=== PATIENT | female | born 1990 | race American Indian/Alaskan Native ===

== ENCOUNTER 2021-06-26 11:39 | Observation (INO) | payer SELFPAY ==
[2021-06-26] MEDS ORDERED: ACETAMINOPHEN 500 MG TAB PO ONE (12:16)
--- NOTE | 2021-06-26 12:21 | Emergency Department Report ---
ED Shortness of Breath HPI - General Chief Complaint: Dyspnea/Respdistress Stated Complaint: BP/HEADACHE/WEAK Time Seen by Provider: 06/26/21 12:01 Source: patient Mode of arrival: Ambulatory Limitations: No Limitations - History of Present Illness Initial Comments: Patient is a 31-year-old female presenting to the emergency department with multiple complaints. Patient states for the past 4 to 5 days she has had heavy cycles. She is noted that previously her cycles are not heavy. She is also had some shortness of breath headache and back pain. This is been present for the same time as her heavy cycles, for the past 4 days. She denies history of anemia and she denies any chest pain currently. She denies any history of blood clots in legs or lungs. She also notes she has a stye on her eye. She denies any fevers chills. She notes she is unvaccinated COVID-19 and has not had any sick contacts. - Related Data Previous Rx's Medication Instructions Recorded Last Taken Type Norgestimate-Ethinyl Estradiol 1 each PO QDAY #30 tablet 06/27/21 Unknown Rx [Ortho-Cyclen] Allergies Allergy/AdvReac Type Severity Reaction Status Date / Time No Known Allergies Allergy Unverified 06/26/21 11:43 ED Review of Systems ROS: Stated complaint: BP/HEADACHE/WEAK Other details as noted in HPI Constitutional: denies: chills, fever Eyes: denies: eye pain ENT: denies: throat pain Respiratory: shortness of breath. denies: cough Cardiovascular: denies: chest pain, syncope Endocrine: no symptoms reported Gastrointestinal: abdominal pain Genitourinary: denies: urgency, dysuria Musculoskeletal: denies: back pain Skin: denies: rash Neurological: denies: headache, weakness Psychiatric: denies: anxiety, depression Hematological/Lymphatic: denies: easy bleeding ED Past Medical Hx - Medications Home Medications: Home Medications Medication Instructions Recorded Confirmed Last Taken Type Norgestimate-Ethinyl Estradiol 1 each PO QDAY #30 tablet 06/27/21 Unknown Rx [Ortho-Cyclen] ED Physical Exam - General Limitations: No Limitations General appearance: alert, in no apparent distress - Head Head exam: Present: atraumatic, normocephalic - Eye Eye exam: Present: normal appearance - ENT ENT exam: Present: mucous membranes moist - Neck Neck exam: Present: normal inspection - Respiratory Respiratory exam: Present: normal lung sounds bilaterally. Absent: respiratory distress - Cardiovascular Cardiovascular Exam: Present: regular rate, normal rhythm. Absent: systolic murmur, diastolic murmur, rubs, gallop - GI/Abdominal GI/Abdominal exam: Present: soft, normal bowel sounds - Rectal Rectal exam: Present: deferred - External exam: Present: normal external exam Speculum exam: Present: vaginal bleeding. Absent: erythema, vaginal discharge, foreign body, laceration - Extremities Exam Extremities exam: Present: normal inspection - Back Exam Back exam: Present: normal inspection - Neurological Exam Neurological exam: Present: alert, oriented X3 - Psychiatric Psychiatric exam: Present: normal affect, normal mood - Skin Skin exam: Present: warm, dry, intact, normal color. Absent: rash ED Course Vital Signs 06/26/21 06/26/21 06/26/21 11:43 11:46 17:07 Temperature 98.9 F 98.0 F Pulse Rate 110 H 88 Respiratory 18 18 Rate Blood Pressure 101/52 96/39 Blood Pressure [Left] O2 Sat by Pulse 100 100 100 Oximetry 06/26/21 06/26/21 06/26/21 17:22 17:38 17:46 Temperature 98.0 F Pulse Rate 88 84 87 Respiratory 16 14 14 Rate Blood Pressure 101/53 96/55 89/52 Blood Pressure [Left] O2 Sat by Pulse 100 100 100 Oximetry 06/26/21 06/26/21 06/26/21 18:00 18:16 18:30 Temperature Pulse Rate 93 H 84 104 H Respiratory 14 13 16 Rate Blood Pressure 94/54 96/50 92/54 Blood Pressure [Left] O2 Sat by Pulse 100 98 99 Oximetry 06/26/21 06/26/21 06/26/21 18:32 18:46 19:00 Temperature 98.9 F Pulse Rate 91 H 84 88 Respiratory 15 11 L 15 Rate Blood Pressure 106/64 101/58 95/50 Blood Pressure [Left] O2 Sat by Pulse 100 99 98 Oximetry 06/26/21 06/26/21 06/26/21 19:09 19:30 19:43 Temperature 99.1 F 98.9 F Pulse Rate 85 84 91 H Respiratory 12 12 15 Rate Blood Pressure 97/55 106/64 Blood Pressure 93/49 [Left] O2 Sat by Pulse 100 98 100 Oximetry 06/26/21 06/26/21 06/26/21 19:46 20:00 20:30 Temperature Pulse Rate 77 87 85 Respiratory 13 13 10 L Rate Blood Pressure 99/61 95/54 103/48 Blood Pressure [Left] O2 Sat by Pulse 100 100 97 Oximetry 06/26/21 06/26/21 06/26/21 20:46 21:00 21:16 Temperature Pulse Rate 95 H 89 87 Respiratory 14 15 14 Rate Blood Pressure 108/44 104/65 97/62 Blood Pressure [Left] O2 Sat by Pulse 99 99 100 Oximetry 06/26/21 06/26/21 06/26/21 22:00 22:18 22:30 Temperature 98.7 F 98.1 F Pulse Rate 88 88 85 Respiratory 17 13 15 Rate Blood Pressure 96/63 104/50 93/58 Blood Pressure [Left] O2 Sat by Pulse 100 100 100 Oximetry 06/26/21 06/26/21 06/26/21 22:46 23:00 23:16 Temperature Pulse Rate 94 H 90 98 H Respiratory 12 12 14 Rate Blood Pressure 97/57 96/51 108/65 Blood Pressure [Left] O2 Sat by Pulse 99 99 100 Oximetry 06/26/21 06/26/21 06/27/21 23:30 23:46 00:00 Temperature Pulse Rate 77 80 98 H Respiratory 10 L 10 L Rate Blood Pressure 101/63 103/62 110/65 Blood Pressure [Left] O2 Sat by Pulse 98 97 99 Oximetry 06/27/21 06/27/21 06/27/21 00:16 00:30 00:40 Temperature 98 F Pulse Rate 75 77 77 Respiratory 11 L 9 L 12 Rate Blood Pressure 119/61 109/61 106/76 Blood Pressure [Left] O2 Sat by Pulse 100 98 100 Oximetry 06/27/21 06/27/21 06/27/21 01:00 01:30 01:33 Temperature 98.6 F 99.1 F Pulse Rate 92 H 84 81 Respiratory 11 L 15 19 Rate Blood Pressure 113/80 107/68 Blood Pressure [Left] O2 Sat by Pulse 97 97 100 Oximetry 06/27/21 06/27/21 06/27/21 01:46 01:48 02:00 Temperature 98.9 F Pulse Rate 80 80 85 Respiratory 10 L 11 L 18 Rate Blood Pressure 107/68 113/78 116/69 Blood Pressure [Left] O2 Sat by Pulse 99 97 97 Oximetry 06/27/21 06/27/21 06/27/21 02:16 02:30 02:46 Temperature Pulse Rate 89 82 81 Respiratory 18 12 12 Rate Blood Pressure 106/63 111/74 109/64 Blood Pressure [Left] O2 Sat by Pulse 97 97 99 Oximetry 06/27/21 06/27/21 06/27/21 03:00 03:30 03:46 Temperature Pulse Rate 92 H 84 78 Respiratory 14 11 L Rate Blood Pressure 109/80 111/67 100/61 Blood Pressure [Left] O2 Sat by Pulse 98 100 99 Oximetry 06/27/21 06/27/21 06/27/21 04:00 04:16 04:30 Temperature Pulse Rate 86 69 76 Respiratory 13 11 L 11 L Rate Blood Pressure 105/66 107/64 113/67 Blood Pressure [Left] O2 Sat by Pulse 99 97 98 Oximetry 06/27/21 06/27/21 06/27/21 04:46 05:04 05:16 Temperature 98.1 F Pulse Rate 72 82 65 Respiratory 10 L 15 14 Rate Blood Pressure 97/61 110/53 111/63 Blood Pressure [Left] O2 Sat by Pulse 99 97 99 Oximetry 06/27/21 06/27/21 06/27/21 05:30 05:43 05:50 Temperature 98.5 F 98.8 F Pulse Rate 70 84 93 H Respiratory 23 12 14 Rate Blood Pressure 111/63 108/60 98/59 Blood Pressure [Left] O2 Sat by Pulse 98 99 100 Oximetry 06/27/21 06/27/21 06/27/21 06:16 06:30 06:40 Temperature Pulse Rate 87 81 93 H Respiratory 13 13 14 Rate Blood Pressure 112/68 105/58 105/58 Blood Pressure [Left] O2 Sat by Pulse 100 99 97 Oximetry 06/27/21 06/27/21 06/27/21 06:50 07:00 07:10 Temperature Pulse Rate 78 86 83 Respiratory 13 10 L 12 Rate Blood Pressure 112/66 93/57 93/57 Blood Pressure [Left] O2 Sat by Pulse 100 100 100 Oximetry 06/27/21 06/27/21 06/27/21 07:20 07:30 07:40 Temperature Pulse Rate 80 82 75 Respiratory 12 12 12 Rate Blood Pressure 94/46 113/71 113/71 Blood Pressure [Left] O2 Sat by Pulse 99 95 99 Oximetry 06/27/21 06/27/21 06/27/21 07:50 08:00 08:20 Temperature Pulse Rate 80 83 Respiratory 19 16 Rate Blood Pressure 100/67 103/57 103/57 Blood Pressure [Left] O2 Sat by Pulse 99 100 84 Oximetry - Reevaluation(s) Reevaluation #1: Patient with anemia; hgb 3.2. Patient HDS, 4 units PRBC ordered patient to be admitted. IV premarin ordered due to active bleeding. ED Medical Decision Making - Lab Data Result diagrams: 06/27/21 20:25 06/26/21 13:22 - Medical Decision Making This is a 31-year-old female here with complaint of shortness of breath headache back pain increased bleeding with menstruation. Differential includes anemia, viral illness. Considered but less likely would be pulmonary embolism however patient does not have risk factors but she has slight tachycardia. Her oxygen levels are 100%. Plan for evaluation with basic labs chest x-ray will give IV fluids and pain control. Will reassess after. Critical care attestation.: If time is entered above; I have spent that time in minutes in the direct care of this critically ill patient, excluding procedure time. ED Disposition Clinical Impression: Anemia, Symptomatic anemia Menorrhagia Qualifiers: Menorrhagia type: with regular cycle Qualified Code(s): N92.0 - Excessive and frequent menstruation with regular cycle Disposition: ADMITTED INPATIENT Is pt being admited?: Yes Does the pt Need Aspirin: No Condition: Stable
[2021-06-26] MEDS: SODIUM CHLORIDE 0.9% 1000 ML 1,000 ML IV ONE ×2 (12:46→14:56)
[2021-06-26 14:13] LABS: Mean Corpuscular HGB Conc 26 % (30-34); Red Blood Count 2.34 M/mm3 (3.65-5.03)
[2021-06-26 14:15] LABS: Hematocrit 12.3 % (30.3-42.9); Hemoglobin 3.2 gm/dl (10.1-14.3); Mean Corpuscular Volume 53 fl (79-97); Platelet Count 38 K/mm3 (140-440); Red Cell Distribution Width 30.9 % (13.2-15.2)
[2021-06-26] MEDS ORDERED: SODIUM CHLORIDE 0.9% 500 ML 500 ML IV ONE (14:18)
[2021-06-26 14:30] LABS: Alanine Aminotransferase 7 units/L (7-56); Albumin 3.4 g/dL (3.9-5); Blood Urea Nitrogen 9 mg/dL (7-17); Calcium 7.8 mg/dL (8.4-10.2); Hemolysis Index 3
[2021-06-26 14:32] LABS: BUN/Creatinine Ratio 23
[2021-06-26 14:53] LABS: Total Cells Counted 100
[2021-06-26 14:54] LABS: Anisocytosis 3+; Hypochromasia 3+; Platelet Estimate Consistent w Auto; Poikilocytosis 1+
[2021-06-26 14:55] LABS: Helmet Cells Rare; Ovalocytes Few; Tear Drop Cells Few
[2021-06-26] MEDS ORDERED: SODIUM CHLORIDE 0.9% 1000 ML 1,000 ML ONE (16:57)
--- NOTE | 2021-06-26 19:09 | XRay Report ---
CHEST 1 VIEW INDICATION: dyspnea. COMPARISON: None. FINDINGS: Support devices: None. Heart: Normal. Lungs/Pleura: No acute findings. IMPRESSION: 1. No significant abnormality. Signer Name: Fritz Dillon MD Signed: 06/26/2021 7:04 PM Workstation Name: [id number]
[2021-06-26] MEDS ORDERED: ACETAMINOPHEN 325 MG TAB PO PRN (19:19)
[2021-06-26] MEDS ORDERED: ALBUTEROL 2.5 MG/3 ML NEBU IH PRN (19:19)
[2021-06-26] MEDS ORDERED: SENNOSIDES/DOCUSATE SODIUM 8.6/50 MG TAB PO PRN (19:21)
--- NOTE | 2021-06-26 19:21 | History and Physical Report ---
History of Present Illness Chief complaint: I am so weak History of present illness: 31 YO Female with Menorrhagia, medication noncompliance, lost outpatient follow- up presents ED for evaluation. Patient states that she has experienced generalized weakness over the past 1 month with worsening symptoms over the same timeframe. Patient transported to [facility] via private vehicle for further care and evaluation of the aforementioned symptoms. The patient was seen and evaluated in the emergency department. All laboratory studies reviewed. Patient found to have menorrhagia complicated by blood loss anemia, as well as iron deficiency anemia. Patient placed in observation status and admitted to medical floor. Packed red blood cell transfusion initiated in the emergency department. Patient denies fever, chills, chest pain, palpitation, productive cough, skin rash, recent contact, known exposure to COVID-19. No prior admission for review. No medication listed at time of admission reconciliation. Advanced ca re planning conducted in ED. Patient is not vaccinated against COVID-19. Past History Past Medical History: other (See HPI) Past Surgical History: No surgical history Social history: single Family history: hypertension Medications and Allergies Allergies Allergy/AdvReac Type Severity Reaction Status Date / Time No Known Allergies Allergy Unverified 06/26/21 11:43 Active Meds: Active Medications Estrogens Conjugated (Estrogens, Conjugated 25 Mg Inj) 25 mg IV ONCE ONE Stop: 06/26/21 19:44 Review of Systems Constitutional: weakness, no weight loss, no fever, no chills, no sweats Ears, nose, mouth and throat: no ear pain, no decreased hearing, no nasal congestion Breasts: no change in shape, no swelling, no mass Cardiovascular: no chest pain, no orthopnea, no palpitations, no edema Respiratory: no cough, no cough with sputum, no hemoptysis, no shortness of breath Gastrointestinal: no abdominal pain, no nausea, no vomiting, no constipation Genitourinary Female: menorrhagia, no pelvic pain, no flank pain, no dysuria Rectal: no pain, no incontinence, no bleeding Musculoskeletal: no neck stiffness, no shooting arm pain Integumentary: no rash, no pruritis, no sores, no jaundice Neurological: no head injury, no transient paralysis, no weakness, no parathesias, no tingling Psychiatric: no anxiety, no sleep disturbances, no hypersomnia, no change in libido, no suicidal ideation Endocrine: no cold intolerance, no polyphagia, no excessive thirst, no polyuria, no nocturia, no flushing Hematologic/Lymphatic: no easy bruising, no easy bleeding Allergic/Immunologic: no urticaria, no allergic rhinitis Exam - Constitutional Vitals: Temp Pulse Resp BP Pulse Ox 98.0 F 84 11 L 101/58 99 06/26/21 17:22 06/26/21 18:46 06/26/21 18:46 06/26/21 18:46 06/26/21 18:46 General appearance: Present: no acute distress - EENT Eyes: Present: PERRL (Conjunctival pallor) ENT: hearing intact, clear oral mucosa - Neck Neck: Present: supple, normal ROM - Respiratory Respiratory effort: normal Respiratory: bilateral: CTA - Cardiovascular Heart Sounds: Present: S1 & S2. Absent: rub, click - Extremities Extremities: pulses symmetrical, No edema Peripheral Pulses: within normal limits - Abdominal General gastrointestinal: Present: soft, non-tender, non-distended, normal bowel sounds Female genitourinary: Present: normal - Integumentary Integumentary: Present: clear, warm, dry - Musculoskeletal Musculoskeletal: generalized weakness - Psychiatric Psychiatric: appropriate mood/affect, intact judgment & insight - Neurologic Neurologic: CNII-XII intact, moves all extremities Results - Labs CBC & Chem 7: 06/26/21 13:22 06/26/21 13:22 Labs: Abnormal lab results 06/26/21 06/26/21 06/26/21 Range/Units 13:22 13:22 15:21 WBC 3.4 L (4.5-11.0) K/mm3 RBC 2.34 L (3.65-5.03) M/mm3 Hgb 3.2 L* (10.1-14.3) gm/dl Hct 12.3 L* (30.3-42.9) % MCV 53 L (79-97) fl MCH 14 L (28-32) pg MCHC 26 L (30-34) % RDW 30.9 H (13.2-15.2) % Plt Count 38 L (140-440) K/mm3 Lymphocytes % (Manual) 45.0 H (13.4-35.0) % Seg Neutrophils # Man 1.6 L (1.8-7.7) K/mm3 Chloride 107.7 H (98-107) mmol/L Carbon Dioxide 19 L (22-30) mmol/L Creatinine 0.4 L (0.6-1.2) mg/dL Calcium 7.8 L (8.4-10.2) mg/dL Total Protein 5.5 L (6.3-8.2) g/dL Albumin 3.4 L (3.9-5) g/dL Crossmatch See Detail Assessment and Plan - Patient Problems (1) Symptomatic anemia Current Visit: Yes Status: Acute Plan to address problem: Blood cell transfusion, CBC, repeat CBC in a.m. iron replacement therapy (2) Menorrhagia Current Visit: Yes Status: Acute Qualifiers: Menorrhagia type: with regular cycle Qualified Code(s): N92.0 - Excessive and frequent menstruation with regular cycle Plan to address problem: Outpatient [employer] follow-up. (3) Iron deficiency anemia Current Visit: Yes Status: Acute Plan to address problem: Iron placement therapy, bowel regimen. (4) Noncompliance with medication regimen Current Visit: Yes Status: Acute Plan to address problem: Patient counseled. (5) DVT prophylaxis Current Visit: Yes Status: Acute Plan to address problem: SCD to bilateral lower extremities while in bed, patient is ambulatory (6) Advance care planning Current Visit: Yes Status: Acute Plan to address problem: Disease education conducted, care plan discussed, diagnoses discussed, prognosis discussed, patient is full code. Patient informed of outpatient medical follow- up that should occur upon discharge. Patient acknowledges understanding and agreement with care plan, +30 minutes.
[2021-06-26] MEDS ORDERED: ESTROGENS, CONJUGATED 25 MG INJ IV ONE (19:43)
[2021-06-26] MEDS: FERROUS SULFATE 325 MG TAB PO SCH (20:02)
[2021-06-26] MEDS: oxyCODONE /ACETAMINOPHEN 5-325MG TAB PO PRN (22:06)
[2021-06-26 22:33] LABS: HCG Qualitative,Urine Negative (Negative)
[2021-06-26] MEDS: HYDROmorphone 1 MG/1 ML INJ IV PRN (23:05)
[2021-06-27] MEDS ORDERED: HYDROmorphone 1 MG/1 ML INJ IV STA (02:07)
[2021-06-27] MEDS: KETOROLAC 30 MG/1 ML INJ IV PRN ×3 (02:49→12:51)
[2021-06-27] MEDS: ONDANSETRON 4 MG/2 ML INJ IV PRN ×3 (02:49→18:35)
--- NOTE | 2021-06-27 07:23 | Progress Note ---
Assessment and Plan Assessment and plan: #Symptomatic acute blood loss anemia #Microcytic anemia -likely 2/2 to menorrhagia -given thrombocytopenia, MAHA vs TTP is a consideration -LDH, INR, Haptoglobin, fibrinogen and d-dimer ordered -repeat Hgb 9.6 after 4 units of pRBC -q8h H&H -will transfuse for Hgb <8 #Menorrhagia -heavy period x5 days -s/p premarin x1; will continue q6hr x 1 day -Vaginal ultrasound ordered -Gynecology consulted, assistance appreciated -UPT negative #Thrombocytopenia -Platelet count 38 on admission, 29 today -will hold chemical DVT prophylaxis at this time -PLASMIC score for TTP: 2 (plt count less than 30, MCV <90); low probability of TTP -will continue to monitor #Leukopenia -Resolved Disposition Plan: continue medical management History Interval history: No acute events overnight. Patient received all 4 units of blood. Reports feeling better. Still having her menstrual cycle. No other complaints at this time. Hospitalist Physical - Physical exam Narrative exam: GENERAL: Well-developed well-nourished. Lying in bed, in no acute distress. HEENT: Stye right eye CHEST/LUNGS: CTAB on room air HEART/CARDIOVASCULAR: RRR. No murmur, rubs or gallops appreciated. ABDOMEN: +BS. NT/ND. SKIN: No rashes or ecchymosis noted. NEURO: No focal motor deficit. Follows all commands. MUSCULOSKELETAL: No joint effusion EXTREMITIES: No cyanosis, clubbing or edema. PSYCH: Cooperative. - Constitutional Vitals: Temp Pulse Resp BP Pulse Ox 98.8 F 87 13 112/68 100 06/27/21 05:50 06/27/21 06:16 06/27/21 06:16 06/27/21 06:16 06/27/21 06:16 General appearance: Present: no acute distress Results - Labs CBC & Chem 7: 06/27/21 10:32 06/26/21 13:22 Labs: Laboratory Last Values WBC 3.4 K/mm3 (4.5-11.0) L 06/26/21 13:22 RBC 2.34 M/mm3 (3.65-5.03) L 06/26/21 13:22 Hgb 3.2 gm/dl (10.1-14.3) L* 06/26/21 13:22 Hct 12.3 % (30.3-42.9) L* 06/26/21 13:22 MCV 53 fl (79-97) L 06/26/21 13:22 MCH 14 pg (28-32) L 06/26/21 13:22 MCHC 26 % (30-34) L 06/26/21 13:22 RDW 30.9 % (13.2-15.2) H 06/26/21 13:22 Plt Count 38 K/mm3 (140-440) L 06/26/21 13:22 Add Manual Diff Complete 06/26/21 13:22 Total Counted 100 06/26/21 13:22 Seg Neuts % (Manual) 48.0 % (40.0-70.0) 06/26/21 13:22 Band Neutrophils % 1.0 % 06/26/21 13:22 Lymphocytes % (Manual) 45.0 % (13.4-35.0) H 06/26/21 13:22 Monocytes % (Manual) 4.0 % (0.0-7.3) 06/26/21 13:22 Eosinophils % (Manual) 2.0 % (0.0-4.3) 06/26/21 13:22 Nucleated RBC % Not Reportable 06/26/21 13:22 Seg Neutrophils # Man 1.6 K/mm3 (1.8-7.7) L 06/26/21 13:22 Band Neutrophils # 0.0 K/mm3 06/26/21 13:22 Lymphocytes # (Manual) 1.5 K/mm3 (1.2-5.4) 06/26/21 13:22 Abs React Lymphs (Man) 0.0 K/mm3 06/26/21 13:22 Monocytes # (Manual) 0.1 K/mm3 (0.0-0.8) 06/26/21 13:22 Eosinophils # (Manual) 0.1 K/mm3 (0.0-0.4) 06/26/21 13:22 Basophils # (Manual) 0.0 K/mm3 (0.0-0.1) 06/26/21 13:22 Metamyelocytes # 0.0 K/mm3 06/26/21 13:22 Myelocytes # 0.0 K/mm3 06/26/21 13:22 Promyelocytes # 0.0 K/mm3 06/26/21 13:22 Blast Cells # 0.0 K/mm3 06/26/21 13:22 WBC Morphology Not Reportable 06/26/21 13:22 Hypersegmented Neuts Not Reportable 06/26/21 13:22 Hyposegmented Neuts Not Reportable 06/26/21 13:22 Hypogranular Neuts Not Reportable 06/26/21 13:22 Smudge Cells Not Reportable 06/26/21 13:22 Toxic Granulation Not Reportable 06/26/21 13:22 Toxic Vacuolation Not Reportable 06/26/21 13:22 Dohle Bodies Not Reportable 06/26/21 13:22 Pelger-Huet Anomaly Not Reportable 06/26/21 13:22 Jurgen Rods Not Reportable 06/26/21 13:22 Platelet Estimate Consistent w auto 06/26/21 13:22 Clumped Platelets Not Reportable 06/26/21 13:22 Plt Clumps, EDTA Not Reportable 06/26/21 13:22 Large Platelets Not Reportable 06/26/21 13:22 Giant Platelets Not Reportable 06/26/21 13:22 Platelet Satelliting Not Reportable 06/26/21 13:22 Plt Morphology Comment Not Reportable 06/26/21 13:22 RBC Morphology Not Reportable 06/26/21 13:22 Dimorphic RBCs Not Reportable 06/26/21 13:22 Polychromasia Not Reportable 06/26/21 13:22 Hypochromasia 3+ 06/26/21 13:22 Poikilocytosis 1+ 06/26/21 13:22 Anisocytosis 3+ 06/26/21 13:22 Microcytosis 3+ 06/26/21 13:22 Macrocytosis Not Reportable 06/26/21 13:22 Spherocytes Not Reportable 06/26/21 13:22 Pappenheimer Bodies Not Reportable 06/26/21 13:22 Sickle Cells Not Reportable 06/26/21 13:22 Target Cells Not Reportable 06/26/21 13:22 Tear Drop Cells Few 06/26/21 13:22 Ovalocytes Few 06/26/21 13:22 Helmet Cells Rare 06/26/21 13:22 Hines-Brenda Bodies Not Reportable 06/26/21 13:22 [place] Rings Not Reportable 06/26/21 13:22 Juan Cells Not Reportable 06/26/21 13:22 Bite Cells Not Reportable 06/26/21 13:22 Crenated Cell Not Reportable 06/26/21 13:22 Elliptocytes Few 06/26/21 13:22 Acanthocytes (Spur) Not Reportable 06/26/21 13:22 Rouleaux Not Reportable 06/26/21 13:22 Hemoglobin C Crystals Not Reportable 06/26/21 13:22 Schistocytes Not Reportable 06/26/21 13:22 Malaria parasites Not Reportable 06/26/21 13:22 John Bodies Not Reportable 06/26/21 13:22 Hem Pathologist Commnt No 06/26/21 13:22 Sodium 139 mmol/L (137-145) 06/26/21 13:22 Potassium 3.6 mmol/L (3.6-5.0) 06/26/21 13:22 Chloride 107.7 mmol/L (98-107) H 06/26/21 13:22 Carbon Dioxide 19 mmol/L (22-30) L 06/26/21 13:22 Anion Gap 16 mmol/L 06/26/21 13:22 BUN 9 mg/dL (7-17) 06/26/21 13:22 Creatinine 0.4 mg/dL (0.6-1.2) L 06/26/21 13:22 Estimated GFR > 60 ml/min 06/26/21 13:22 BUN/Creatinine Ratio 23 % 06/26/21 13:22 Glucose 94 mg/dL (65-100) 06/26/21 13:22 Calcium 7.8 mg/dL (8.4-10.2) L 06/26/21 13:22 Total Bilirubin < 0.20 mg/dL (0.1-1.2) 06/26/21 13:22 AST 10 units/L (5-40) 06/26/21 13:22 ALT 7 units/L (7-56) 06/26/21 13:22 Alkaline Phosphatase 45 units/L (35-129) 06/26/21 13:22 Total Protein 5.5 g/dL (6.3-8.2) L 06/26/21 13:22 Albumin 3.4 g/dL (3.9-5) L 06/26/21 13:22 Albumin/Globulin Ratio 1.6 % 06/26/21 13:22 HCG, Qual Negative (Negative) 06/26/21 13:22 Urine HCG, Qual Negative (Negative) 06/26/21 21:31 Blood Type B POSITIVE 06/26/21 15:21 Antibody Screen Negative 06/26/21 15:21 Crossmatch See Detail 06/26/21 15:21 Active Medications - Current Medications Current Medications: Generic Name Dose Route Start Last Admin Trade Name Freq PRN Reason Stop Dose Admin Acetaminophen 650 mg 06/26/21 19:19 Acetaminophen 325 Mg Tab PO Q4H PRN Pain MILD(1-3)/Fever >100.5/ZAFAR Albuterol 2.5 mg 06/26/21 19:19 Albuterol 2.5 Mg/3 Ml Nebu IH Q4HRT PRN Shortness Of Breath Ferrous Sulfate 325 mg 06/26/21 20:00 06/26/21 20:02 Ferrous Sulfate 325 Mg Tab PO 325 mg TID BLAKE Administration Hydromorphone HCl 0.5 mg 06/26/21 19:19 06/26/21 23:05 Hydromorphone 1 Mg/1 Ml Inj IV 0.5 mg Q23H PRN Administration Pain , Severe (7-10) Ketorolac Tromethamine 15 mg 06/27/21 02:18 06/27/21 02:49 Ketorolac 30 Mg/1 Ml Inj IV 07/02/21 02:17 15 mg Q6H PRN Administration Pain, Mild (1-3) Ondansetron HCl 4 mg 06/26/21 19:19 06/27/21 02:49 Ondansetron 4 Mg/2 Ml Inj IV 4 mg Q8H PRN Administration Nausea And Vomiting Oxycodone/Acetaminophen 1 tab 06/26/21 19:19 06/26/21 22:06 Oxycodone /Acetaminophen 5-325mg Tab PO 1 tab Q16H PRN Administration Pain, Moderate (4-6) Senna/Docusate Sodium 2 tab 06/26/21 19:21 Sennosides/Docusate Sodium 8.6/50 Mg Tab PO Q12H PRN Laxative Effect Sodium Chloride 10 ml 06/26/21 22:00 06/26/21 22:12 Sodium Chloride 0.9% 10 Ml Flush Syringe IV 10 ml BID BLAKE Administration Sodium Chloride 10 ml 06/26/21 19:19 Sodium Chloride 0.9% 10 Ml Flush Syringe IV PRN PRN LINE FLUSH
[2021-06-27 10:45] LABS: Hematocrit 31.3 % (30.3-42.9); Hemoglobin 9.6 gm/dl (10.1-14.3); Mean Corpuscular HGB Conc 31 % (30-34); Mean Corpuscular Volume 76 fl (79-97); Red Blood Count 4.11 M/mm3 (3.65-5.03)
[2021-06-27 10:46] LABS: Platelet Count 29 K/mm3 (140-440); Red Cell Distribution Width 37.8 % (13.2-15.2)
[2021-06-27 11:28] LABS: Total Cells Counted 100
[2021-06-27 11:29] LABS: Hypochromasia 1+; Macrocytosis 1+
[2021-06-27 11:30] LABS: Anisocytosis 2+; Platelet Estimate Consistent w Auto
--- NOTE | 2021-06-27 12:12 | Consultation ---
History of Present Illness Consult date: 06/27/21 Requesting physician: PATO THACKER Reason for consult: menorrhagia, other (Severe ELLI with Hb ~3) History of present illness: 31yo with known menorrhagia and progressive anemia noncompliant with outpatient medical managemet. Past History Past Surgical History: no surgical history Family/Genetic History: none Social history: no significant social history Medications and Allergies Allergies Allergy/AdvReac Type Severity Reaction Status Date / Time No Known Allergies Allergy Unverified 06/26/21 11:43 Active Meds: Active Medications Acetaminophen (Acetaminophen 325 Mg Tab) 650 mg PO Q4H PRN PRN Reason: Pain MILD(1-3)/Fever >100.5/ZAFAR Albuterol (Albuterol 2.5 Mg/3 Ml Nebu) 2.5 mg IH Q4HRT PRN PRN Reason: Shortness Of Breath Estrogens Conjugated (Estrogens, Conjugated 25 Mg Inj) 25 mg IV Q6HR [facility] Stop: 06/28/21 12:01 Ferrous Sulfate (Ferrous Sulfate 325 Mg Tab) 325 mg PO TID [facility] Last Admin: 06/26/21 20:02 Dose: 325 mg Documented by: Hydromorphone HCl (Hydromorphone 1 Mg/1 Ml Inj) 0.5 mg IV Q23H PRN PRN Reason: Pain , Severe (7-10) Last Admin: 06/26/21 23:05 Dose: 0.5 mg Documented by: Ketorolac Tromethamine (Ketorolac 30 Mg/1 Ml Inj) 15 mg IV Q6H PRN PRN Reason: Pain, Mild (1-3) Stop: 07/02/21 02:17 Last Admin: 06/27/21 07:59 Dose: 15 mg Documented by: Ondansetron HCl (Ondansetron 4 Mg/2 Ml Inj) 4 mg IV Q8H PRN PRN Reason: Nausea And Vomiting Last Admin: 06/27/21 10:44 Dose: 4 mg Documented by: Oxycodone/Acetaminophen (Oxycodone /Acetaminophen 5-325mg Tab) 1 tab PO Q16H PRN PRN Reason: Pain, Moderate (4-6) Last Admin: 06/26/21 22:06 Dose: 1 tab Documented by: Senna/Docusate Sodium (Sennosides/Docusate Sodium 8.6/50 Mg Tab) 2 tab PO Q12H PRN PRN Reason: Laxative Effect Sodium Chloride (Sodium Chloride 0.9% 10 Ml Flush Syringe) 10 ml IV BID BLAKE Last Admin: 06/26/21 22:12 Dose: 10 ml Documented by: Sodium Chloride (Sodium Chloride 0.9% 10 Ml Flush Syringe) 10 ml IV PRN PRN PRN Reason: LINE FLUSH - Vital Signs Vital signs: Vital Signs Temp Pulse Resp BP Pulse Ox 98.9 F 110 H 18 101/52 100 06/26/21 11:43 06/26/21 11:43 06/26/21 11:43 06/26/21 11:43 06/26/21 11:43 Temp Pulse Resp BP Pulse Ox 97.8 F 76 20 103/57 100 06/27/21 08:23 06/27/21 08:23 06/27/21 08:23 06/27/21 08:23 06/27/21 08:23 - Physical Exam Breasts: Positive: deferred Cardiovascular: Regular rate Lungs: Positive: Clear to auscultation, Normal air movement Abdomen: Positive: normal appearance, normal bowel sounds Genitourinary (Female): Positive: normal external genitalia, normal perenium Vulva: both: normal Extremities: Positive: normal Deep Tendon Reflex Grade: Normal +2 Results Result Diagrams: 06/27/21 14:54 06/26/21 13:22 Abnormal lab results 06/26/21 06/26/21 06/26/21 Range/Units 13:22 13:22 15:21 WBC 3.4 L (4.5-11.0) K/mm3 RBC 2.34 L (3.65-5.03) M/mm3 Hgb 3.2 L* (10.1-14.3) gm/dl Hct 12.3 L* (30.3-42.9) % MCV 53 L (79-97) fl MCH 14 L (28-32) pg MCHC 26 L (30-34) % RDW 30.9 H (13.2-15.2) % Plt Count 38 L (140-440) K/mm3 Seg Neuts % (Manual) (40.0-70.0) % Lymphocytes % (Manual) 45.0 H (13.4-35.0) % Seg Neutrophils # Man 1.6 L (1.8-7.7) K/mm3 Chloride 107.7 H (98-107) mmol/L Carbon Dioxide 19 L (22-30) mmol/L Creatinine 0.4 L (0.6-1.2) mg/dL Calcium 7.8 L (8.4-10.2) mg/dL Total Protein 5.5 L (6.3-8.2) g/dL Albumin 3.4 L (3.9-5) g/dL Crossmatch See Detail 06/27/21 Range/Units 10:32 WBC (4.5-11.0) K/mm3 RBC (3.65-5.03) M/mm3 Hgb 9.6 L D (10.1-14.3) gm/dl Hct (30.3-42.9) % MCV 76 L (79-97) fl MCH 23 L (28-32) pg MCHC (30-34) % RDW 37.8 H (13.2-15.2) % Plt Count 29 L (140-440) K/mm3 Seg Neuts % (Manual) 73.0 H (40.0-70.0) % Lymphocytes % (Manual) (13.4-35.0) % Seg Neutrophils # Man (1.8-7.7) K/mm3 Chloride (98-107) mmol/L Carbon Dioxide (22-30) mmol/L Creatinine (0.6-1.2) mg/dL Calcium (8.4-10.2) mg/dL Total Protein (6.3-8.2) g/dL Albumin (3.9-5) g/dL Crossmatch All other labs normal. Assessment and Plan Plan transfuse to Hb >8 Pelvic US reviewed: no gross uterine pathology(one large fundal fibroid without endometrial involvement IV Estrogen 25mg Q6 x 24 hours Zofran PRN DC home with combination OCPs(placed in the orders) Tammy Hall MD
[2021-06-27] MEDS: FERROUS SULFATE 325 MG TAB PO SCH ×3 (12:50→22:00)
--- NOTE | 2021-06-27 14:42 | Ultrasound Report ---
ULTRASOUND PELVIS, COMPLETE INDICATION: Menorrhagia COMPARISON: No relevant prior imaging study available. TECHNIQUE: Transabdominal imaging was performed. FINDINGS: Uterus: Uterus is mildly enlarged measuring 13 cm in longitudinal plane. At the fundus, there is a he terogeneous 6.5 cm lesion.. Endometrial echo complex is not visualized. Right ovary: No significant abnormality. Flow is seen to the right ovary. Left ovary: No significant abnormality. Flow is seen to the left ovary. Additional findings: There is trace free fluid in the cul-de-sac. IMPRESSION: Uterus is mildly enlarged with 6.5 cm heterogeneous lesion at the fundus. This obscures the endometri um. Statistically, this is most likely a uterine fibroid; however, the imaging appearance is nonspeci fic. Signer Name: Fritz Dillon MD Signed: 06/27/2021 2:37 PM Workstation Name: [id number]
[2021-06-27] MEDS: oxyCODONE /ACETAMINOPHEN 5-325MG TAB PO PRN (14:52)
[2021-06-27 15:14] LABS: Hematocrit 31.6 % (30.3-42.9); Hemoglobin 9.7 gm/dl (10.1-14.3)
[2021-06-27 15:28] LABS: INR 1.05 (0.87-1.13)
[2021-06-27] MEDS ORDERED: WATER FOR INJ Sterile (PF) 10 ML ONE (18:00)
[2021-06-27] MEDS: ESTROGENS, CONJUGATED 25 MG INJ IV SCH (18:07)
[2021-06-27 21:05] LABS: Hematocrit 30.5 % (30.3-42.9); Hemoglobin 9.3 gm/dl (10.1-14.3)
[2021-06-28] MEDS: ESTROGENS, CONJUGATED 25 MG INJ IV SCH ×2 (00:02→05:15)
[2021-06-28] MEDS: HYDROmorphone 1 MG/1 ML INJ IV PRN (00:05)
[2021-06-28 07:02] LABS: Hematocrit 31.7 % (30.3-42.9); Hemoglobin 9.6 gm/dl (10.1-14.3)
[2021-06-28] MEDS ORDERED: METOCLOPRAMIDE 10 MG/2 ML INJ IV PRN (09:30)
[2021-06-28] MEDS: FERROUS SULFATE 325 MG TAB PO SCH (09:35)
[2021-06-28] MEDS: ONDANSETRON 4 MG/2 ML INJ IV PRN (09:36)
--- NOTE | 2021-06-28 11:33 | Discharge Summary ---
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 Duncan within 1 month. We have prescribed oral contraceptives for you to take. This should help with bleeding. If you experience symptoms similar to those that brought you to the hospital, please return. Assessment: Patient presents with nausea and vomiting. Found to have hemoglobin of 3.5. She is admitted for further care. She was transfused 4 units of blood and her hemoglobin improved to 9. Platelets are also found to be low. Gynecology was consulted. Vaginal ultrasound revealed a fibroid. She was given estrogen and her menstrual bleeding improved. Follow up with: UTE KHAN MD [Primary Care Provider] - 7 Days CRISTIANO DUNCAN MD [Staff Physician] - 6 Weeks Prescriptions: Ferrous Sulfate [Feosol 325 MG tab] 325 mg PO QDAY 30 Days #30 tablet Norethindrone AC-Eth Estradiol [Loestrin 21 1.5-30 Tablet] 1 each PO DAILY 30 Days #30 tablet
[2021-06-28 11:46] VITALS: BP 91/50
--- NOTE | 2021-06-29 14:16 | Electrocardiograph Report ---
[facility] Test Date: 2021-06-26 Test Time: 13:58:37 Pat Name: NATHAN LEHMAN Department: Room: A365 Gender: F [employer]: MCKINLEY : 1990 Requested By: NELSON MEDINA Order Number: [id number] Reading MD: Tawanda Altman Measurements Intervals [place] Rate: 95 P: 81 MS: 151 QRS: 51 QRSD: 102 T: 35 QT: 378 QTc: 474 Interpretive Statements Sinus rhythm Low voltage, precordial leads No previous ECG available for comparison Electronically Signed On 06-29-2021 14:15:37 EST by Tawanda Altman
== END 2021-06-28 12:41 | disposition home or self-care (01) ==
LOC: ED 11:39 → 3A 19:19
PROVIDERS: ADMIT Internal Medicine; ATTEND Student in an Organized Health Care Education/Training Program
DX: D50.0 Iron deficiency anemia secondary to blood loss (chronic) (principal); N92.0 Excessive and frequent menstruation with regular cycle; D69.6 Thrombocytopenia, unspecified; D72.819 Decreased white blood cell count, unspecified; Z91.14 Patient's other noncompliance with medication regimen
CPT/HCPCS: 36415; 36430; 71045; 76856; 80053; 81025; 83010; 83615; 84703; 85014; 85018; 85025; 85045; 85049; 85379; 85384; 85610; 86850; 86900; 86901; 86920; 93005; 96361; 96374; 96375; 96376; 99285; G0378; J1170; J1410; J1885; J2405; J2765; J7030; J7040; P9016; 85007; Q0162